=== PATIENT | female | born 1960 | race Caucasian/White ===

== ENCOUNTER 2017-08-15 16:50 | Emergency (ER) | payer BC ==
[2010-12-05 18:34] VITALS: BMI 26.2
[2017-08-15 17:22] LABS: BASOPHILS 0.4 % (0-2); EOSINOPHILS 2.1 % (0-7); HEMATOCRIT 44.4 % (36.0-48.0); HEMOGLOBIN 14.7 g/dL (12-16); IMMATURE GRANULOCYTES 0.4 % (0-5); LYMPHOCYTES 34.1 % (15-50); MCH 29.6 pg (26.0-34.0); MCHC 33.1 g/dL (31.0-37.0); MCV 89.3 fL (80.0-100.0); MEAN PLATELET VOLUME 10.1 fL (7.4-10.4); MONOCYTES 10.7 % (2-11); NEUTROPHILS 52.3 % (40-80); PLATELET COUNT 293 10x3/uL (130-400); RBC 4.97 10x6/uL (4.00-5.40); WBC 7.3 10x3/uL (4.8-10.8)
[2017-08-15 17:23] LABS: APPEARANCE SLT CLOUDY (CLEAR); BILIRUBIN NEGATIVE (NEGATIVE); COLOR DK YELLOW (YELLOW); GLUCOSE NEGATIVE (NEGATIVE); KETONE NEGATIVE (NEGATIVE); NITRITE NEGATIVE (NEGATIVE); PROTEIN NEGATIVE (NEGATIVE); UROBILINOGEN NORMAL (NORMAL)
[2017-08-15 17:27] LABS: BACTERIA MODERATE /hpf (NONE SEEN)
[2017-08-15 17:28] LABS: MUCUS <1+ /lpf (NONE SEEN)
[2017-08-15 17:50] LABS: ALBUMIN 3.8 g/dL (3.4-5.0); ALKALINE PHOSPHATASE 93 U/L (46-116); ALT (SGPT) 72 U/L (10-68); AMYLASE - SERUM 54 U/L (25-115); BILIRUBIN - TOTAL 0.39 mg/dL (0.2-1.3); CALC OSMOLALITY 284 mosm/kg (275-300); CARBON DIOXIDE 27.6 mmol/L (21.0-32.0); CHLORIDE - SERUM 106 mmol/L (98-107); CREATININE - SERUM 0.7 mg/dL (0.6-1.3); GLUCOSE 95 mg/dL (74-106); LIPASE 138 U/L (73-393); POTASSIUM - SERUM 4.2 mmol/L (3.5-5.1); PROTEIN - SERUM 7.4 g/dL (6.4-8.2); SODIUM 142 mmol/L (136-145); UREA NITROGEN 19 mg/dL (7-18); eGFR NON AFRICAN AMERICAN > 90 mL/min (90-120)
== END 2017-08-15 20:12 | disposition home or self-care (01) ==
LOC: D.ER 16:50
PROVIDERS: Family Medicine
DX: R11.10 Vomiting, unspecified (principal); R19.7 Diarrhea, unspecified

== ENCOUNTER → 2017-10-28 21:10 | Outpatient (CLI) | payer BC ==
[2010-12-05 18:34] VITALS: BMI 26.2
== END | disposition home or self-care (01) ==
LOC: D.MAMMO 15:45
DX: Z12.31 Encounter for screening mammogram for malignant neoplasm of breast (principal)

== ENCOUNTER → 2018-02-23 13:48 | Outpatient (CLI) | payer BC ==
[2010-12-05 18:34] VITALS: BMI 26.2
== END | disposition home or self-care (01) ==
LOC: D.MRI 13:48
DX: M25.512 Pain in left shoulder (principal)

== ENCOUNTER 2019-01-04 19:00 | Outpatient (CLI) | payer BC ==
[2010-12-05 18:34] VITALS: BMI 26.2
== END 2019-01-04 23:59 | disposition home or self-care (01) ==
LOC: D.MAMMO 19:00
PROVIDERS: ATTEND Emergency Medicine
DX: Z12.31 Encounter for screening mammogram for malignant neoplasm of breast (principal)

== ENCOUNTER 2019-08-06 11:56 | Emergency (ER) | payer BC ==
[2019-08-06 12:04] VITALS: Ht 172.7 cm
[2019-08-06] MEDS ORDERED: [UNRECOGNIZED DRUG - REMARK] (12:04)
[2019-08-06 12:58] VITALS: BP 122/77
[2019-08-06] MEDS ORDERED: STERAPRED 5MG 125 MG PO (13:00)
== END 2019-08-06 12:58 | disposition home or self-care (01) ==
LOC: D.ER 11:56
DX: R05 Cough (principal)